=== PATIENT | female | born 1990 ===

== ENCOUNTER 2023-05-06 01:21 | Emergency (ER) | payer SELFPAY ==
[2023-05-06] VITALS (39 sets, daily range): BP systolic 116–145; BP diastolic 60–96; PULSE 81–110; RESP 14–18; TEMP 36.4; O2SAT 88–100; BMI 37.8
--- NOTE | 2023-05-06 01:29 | ED_ITS ---
HPI - General Adult <Josué Warren DO - Last Filed: 05/07/23 17:49> General Chief complaint: Altered Mental Status Stated complaint: passed out Time Seen by Provider: 05/06/23 01:23 Source: patient and EMS Mode of arrival: EMS History of Present Illness HPI narrative: Patient is a 33-year-old female who has quite a bit of reluctance to describe any HPI. [place] was [place] passed out near 1 of the smoking hot. No Narcan was given. Patient was alert when EMS arrived but would not provide a name or date. She denied taking any drugs or alcohol. She was having right-sided neck pain but she states this has been going on for a while. Vision was reluctant to answer many other HPI questions. Related Data Allergies Allergy/AdvReac Type Severity Reaction Status Date / Time No Known Drug Allergies Allergy Verified 05/06/23 09:34 Review of Systems <Josué Warren DO - Last Filed: 05/07/23 17:49> Review of Systems Narrative: Limited secondary to patient's willingness to answer questions. The only positive results that we had was right-sided neck pain that is not new. Patient History <Josué Warren DO - Last Filed: 05/07/23 17:49> Social History Smoking Status: Former smoker Smoking Status: Former smoker Substance Use Type: does not use Exam <Josué Warren DO - Last Filed: 05/07/23 17:49> Initial Vital Signs Initial Vital Signs: Vital Signs Temperature 97.6 F 05/06/23 01:17 Pulse Rate 102 H 05/06/23 01:17 Respiratory Rate 18 05/06/23 01:17 Blood Pressure 123/67 05/06/23 01:17 Pulse Oximetry 96 05/06/23 01:17 Oxygen Delivery Method Room Air 05/06/23 01:17 Const General: No well groomed (Disheveled) HENMT Head: normal to inspection and normocephalic Resp Effort & Inspection: normal respiratory effort Auscultation: clear to auscultation bilaterally Cardio Rate: regular rate Rhythm: regular rhythm Neuro Other: Patient was alert and oriented, moves all 4 extremities Extrem Other: No gross deformities <Gilma Osman MD - Last Filed: 05/06/23 10:48> Initial Vital Signs Initial Vital Signs: Vital Signs Temperature 97.6 F 05/06/23 01:17 Pulse Rate 102 H 05/06/23 01:17 Respiratory Rate 18 05/06/23 01:17 Blood Pressure 123/67 05/06/23 01:17 Pulse Oximetry 96 05/06/23 01:17 Oxygen Delivery Method Room Air 05/06/23 01:17 Scores <Josué Warren DO - Last Filed: 05/07/23 17:49> GCS [place] coma scale eye opening: Spontaneous [place] coma scale verbal response: Orientated [place] coma scale motor response: Obey commands [place] coma scale total score: 15 <Gilma Osman MD - Last Filed: 05/06/23 10:48> GCS [place] coma scale total score: 15 Course <Josué Warren DO - Last Filed: 05/07/23 17:49> Orders Ordered: Discontinued Medications Acetaminophen (Acetaminophen 325 Mg Tablet) 975 mg PO NOW ONE Stop: 05/06/23 07:48 Last Admin: 05/06/23 08:35 Dose: 975 mg Documented By: DAVIDE Naloxone HCl (Naloxone 0.4 Mg/Ml Vial) 0.4 mg IV NOW ONE Stop: 05/06/23 08:40 Last Admin: 05/06/23 09:34 Dose: 0.4 mg Documented By: DAVIDE Vital Signs Vital signs: Vital Signs - 8 hr 05/06/23 03:00 05/06/23 03:00 05/06/23 03:30 Pulse Rate 98 H 100 H Respiratory Rate 15 16 Blood Pressure 133/77 Pulse Oximetry 95 98 Oxygen Delivery Method Room Air Room Air Oxygen Flow Rate 05/06/23 03:30 05/06/23 04:00 05/06/23 04:00 Pulse Rate 100 H Respiratory Rate 15 Blood Pressure 145/96 H 131/71 Pulse Oximetry 95 Oxygen Delivery Method Room Air Oxygen Flow Rate 05/06/23 04:30 05/06/23 04:30 05/06/23 05:00 Pulse Rate 97 H 99 H Respiratory Rate 16 Blood Pressure 131/74 Pulse Oximetry 96 94 Oxygen Delivery Method Room Air Room Air Oxygen Flow Rate 05/06/23 05:00 05/06/23 05:30 05/06/23 05:30 Pulse Rate 104 H Respiratory Rate Blood Pressure 131/70 120/60 Pulse Oximetry 93 Oxygen Delivery Method Room Air Oxygen Flow Rate 05/06/23 05:40 05/06/23 05:41 05/06/23 06:00 Pulse Rate Respiratory Rate Blood Pressure 125/68 Pulse Oximetry 88 L 93 Oxygen Delivery Method Room Air Nasal Cannula Oxygen Flow Rate 2 05/06/23 06:00 05/06/23 06:30 05/06/23 06:30 Pulse Rate 103 H 99 H Respiratory Rate 15 16 Blood Pressure 126/68 Pulse Oximetry 94 95 Oxygen Delivery Method Nasal Cannula Nasal Cannula Oxygen Flow Rate 2 2 05/06/23 07:00 05/06/23 07:00 05/06/23 07:30 Pulse Rate 99 H Respiratory Rate Blood Pressure 137/89 137/77 Pulse Oximetry 98 Oxygen Delivery Method Oxygen Flow Rate 05/06/23 07:30 05/06/23 07:40 05/06/23 07:50 Pulse Rate 98 H 101 H 96 H Respiratory Rate Blood Pressure Pulse Oximetry 100 97 95 Oxygen Delivery Method Nasal Cannula Room Air Room Air Oxygen Flow Rate 2 05/06/23 08:00 05/06/23 08:10 05/06/23 08:24 Pulse Rate 93 H 89 94 H Respiratory Rate 16 Blood Pressure Pulse Oximetry 95 95 96 Oxygen Delivery Method Room Air Room Air Oxygen Flow Rate 05/06/23 08:25 05/06/23 08:25 05/06/23 08:30 Pulse Rate 93 H Respiratory Rate Blood Pressure 116/69 127/76 Pulse Oximetry 94 Oxygen Delivery Method Room Air Oxygen Flow Rate 05/06/23 08:30 05/06/23 08:40 05/06/23 08:51 Pulse Rate 96 H 89 81 Respiratory Rate Blood Pressure Pulse Oximetry 95 95 96 Oxygen Delivery Method Room Air Oxygen Flow Rate 05/06/23 08:52 05/06/23 08:52 05/06/23 09:00 Pulse Rate 89 84 Respiratory Rate Blood Pressure 126/71 Pulse Oximetry 95 95 Oxygen Delivery Method Oxygen Flow Rate 05/06/23 09:10 05/06/23 09:20 05/06/23 09:30 Pulse Rate 84 83 84 Respiratory Rate Blood Pressure Pulse Oximetry 96 97 96 Oxygen Delivery Method Room Air Oxygen Flow Rate 05/06/23 09:37 05/06/23 09:37 05/06/23 09:40 Pulse Rate 110 H 108 H Respiratory Rate Blood Pressure 124/81 Pulse Oximetry 100 99 Oxygen Delivery Method Room Air Room Air Oxygen Flow Rate 05/06/23 09:50 05/06/23 10:00 05/06/23 10:01 Pulse Rate 106 H 88 Respiratory Rate Blood Pressure 135/95 H Pulse Oximetry 99 94 Oxygen Delivery Method Oxygen Flow Rate 05/06/23 10:01 05/06/23 10:10 05/06/23 10:20 Pulse Rate 88 85 103 H Respiratory Rate Blood Pressure Pulse Oximetry 95 94 93 Oxygen Delivery Method Room Air Room Air Oxygen Flow Rate 05/06/23 10:30 05/06/23 10:30 Pulse Rate 106 H Respiratory Rate Blood Pressure 127/79 Pulse Oximetry 95 Oxygen Delivery Method Room Air Oxygen Flow Rate <Gilma Osman MD - Last Filed: 05/06/23 10:48> Orders Ordered: Discontinued Medications Acetaminophen (Acetaminophen 325 Mg Tablet) 975 mg PO NOW ONE Stop: 05/06/23 07:48 Last Admin: 05/06/23 08:35 Dose: 975 mg Documented By: SPF Naloxone HCl (Naloxone 0.4 Mg/Ml Vial) 0.4 mg IV NOW ONE Stop: 05/06/23 08:40 Last Admin: 05/06/23 09:34 Dose: 0.4 mg Documented By: SPF Vital Signs Vital signs: Vital Signs - 8 hr 05/06/23 03:00 05/06/23 03:00 05/06/23 03:30 Pulse Rate 98 H 100 H Respiratory Rate 15 16 Blood Pressure 133/77 Pulse Oximetry 95 98 Oxygen Delivery Method Room Air Room Air Oxygen Flow Rate 05/06/23 03:30 05/06/23 04:00 05/06/23 04:00 Pulse Rate 100 H Respiratory Rate 15 Blood Pressure 145/96 H 131/71 Pulse Oximetry 95 Oxygen Delivery Method Room Air Oxygen Flow Rate 05/06/23 04:30 05/06/23 04:30 05/06/23 05:00 Pulse Rate 97 H 99 H Respiratory Rate 16 Blood Pressure 131/74 Pulse Oximetry 96 94 Oxygen Delivery Method Room Air Room Air Oxygen Flow Rate 05/06/23 05:00 05/06/23 05:30 05/06/23 05:30 Pulse Rate 104 H Respiratory Rate Blood Pressure 131/70 120/60 Pulse Oximetry 93 Oxygen Delivery Method Room Air Oxygen Flow Rate 05/06/23 05:40 05/06/23 05:41 05/06/23 06:00 Pulse Rate Respiratory Rate Blood Pressure 125/68 Pulse Oximetry 88 L 93 Oxygen Delivery Method Room Air Nasal Cannula Oxygen Flow Rate 2 05/06/23 06:00 05/06/23 06:30 05/06/23 06:30 Pulse Rate 103 H 99 H Respiratory Rate 15 16 Blood Pressure 126/68 Pulse Oximetry 94 95 Oxygen Delivery Method Nasal Cannula Nasal Cannula Oxygen Flow Rate 2 2 05/06/23 07:00 05/06/23 07:00 05/06/23 07:30 Pulse Rate 99 H Respiratory Rate Blood Pressure 137/89 137/77 Pulse Oximetry 98 Oxygen Delivery Method Oxygen Flow Rate 05/06/23 07:30 05/06/23 07:40 05/06/23 07:50 Pulse Rate 98 H 101 H 96 H Respiratory Rate Blood Pressure Pulse Oximetry 100 97 95 Oxygen Delivery Method Nasal Cannula Room Air Room Air Oxygen Flow Rate 2 05/06/23 08:00 05/06/23 08:10 05/06/23 08:24 Pulse Rate 93 H 89 94 H Respiratory Rate 16 Blood Pressure Pulse Oximetry 95 95 96 Oxygen Delivery Method Room Air Room Air Oxygen Flow Rate 05/06/23 08:25 05/06/23 08:25 05/06/23 08:30 Pulse Rate 93 H Respiratory Rate Blood Pressure 116/69 127/76 Pulse Oximetry 94 Oxygen Delivery Method Room Air Oxygen Flow Rate 05/06/23 08:30 05/06/23 08:40 05/06/23 08:51 Pulse Rate 96 H 89 81 Respiratory Rate Blood Pressure Pulse Oximetry 95 95 96 Oxygen Delivery Method Room Air Oxygen Flow Rate 05/06/23 08:52 05/06/23 08:52 05/06/23 09:00 Pulse Rate 89 84 Respiratory Rate Blood Pressure 126/71 Pulse Oximetry 95 95 Oxygen Delivery Method Oxygen Flow Rate 05/06/23 09:10 05/06/23 09:20 05/06/23 09:30 Pulse Rate 84 83 84 Respiratory Rate Blood Pressure Pulse Oximetry 96 97 96 Oxygen Delivery Method Room Air Oxygen Flow Rate 05/06/23 09:37 05/06/23 09:37 05/06/23 09:40 Pulse Rate 110 H 108 H Respiratory Rate Blood Pressure 124/81 Pulse Oximetry 100 99 Oxygen Delivery Method Room Air Room Air Oxygen Flow Rate 05/06/23 09:50 05/06/23 10:00 05/06/23 10:01 Pulse Rate 106 H 88 Respiratory Rate Blood Pressure 135/95 H Pulse Oximetry 99 94 Oxygen Delivery Method Oxygen Flow Rate 05/06/23 10:01 05/06/23 10:10 05/06/23 10:20 Pulse Rate 88 85 103 H Respiratory Rate Blood Pressure Pulse Oximetry 95 94 93 Oxygen Delivery Method Room Air Room Air Oxygen Flow Rate 05/06/23 10:30 05/06/23 10:30 Pulse Rate 106 H Respiratory Rate Blood Pressure 127/79 Pulse Oximetry 95 Oxygen Delivery Method Room Air Oxygen Flow Rate Medical Decision Making <Josué Warren, DO - Last Filed: 05/07/23 17:49> Lab Data 05/06/23 09:20 05/06/23 09:20 Labs: Lab Results 05/06/23 Range/Units 09:20 WBC 6.3 (4.5-11.0) X10^3/uL RBC 4.49 (4.0-5.2) X10^6/uL Hgb 10.6 L (12.0-16.0) g/dL Hct 33.2 L (36-46) % MCV 74.0 L (80-100) fL MCH 23.7 L (26-34) PG MCHC 32.0 (30-36) % RDW 23.4 H (11.6-14.8) % Plt Count 570 H (150-400) X10^3/uL Neut % (Auto) 42.8 L (50-75) % Lymph % (Auto) 41.9 H (25-40) % [place] % (Auto) 10.9 (3-14) % Eos % (Auto) 3.9 (2-4) % Baso % (Auto) 0.5 (0-2) % Neut # (Auto) 2700 (5965-8250) /uL Lymph # (Auto) 2700 (3897-4147) /uL [place] # (Auto) 700 (0-900) /uL Eos # (Auto) 200 (0-450) /uL Baso # (Auto) 0 (0-100) /uL Platelet Estimate Adequate on smear RBC Morphology See below Anisocytosis 3+ H Microcytosis 1+ H Target Cells 2+ H Sodium 135 L (137-145) mmol/L Potassium 4.1 (3.4-5.1) mmol/L Chloride 106 (98-107) mmol/L Carbon Dioxide 31 (22-32) mmol/L BUN 7 (7-17) mg/dL Creatinine 0.41 L (0.52-1.04) mg/dL Estimated GFR > 60 (>60) mL/min BUN/Creatinine Ratio 17.1 (6-22) Glucose 84 (70-100) mg/dL Calcium 9.0 (8.4-10.2) mg/dL Total Bilirubin 0.7 (0.2-1.3) mg/dL AST 33 (14-36) IU/L ALT 26 (<35) IU/L Alkaline Phosphatase 100 (38-126) U/L Total Protein 6.5 (6.3-8.2) g/dL Albumin 3.2 L (3.5-5.0) g/dL Globulin 3.3 (1.7-4.1) g/dL Albumin/Globulin Ratio 1.0 (1.0-2.8) MDM Narrative Medical decision making narrative: Patient was alert and oriented. No overt signs of trauma. She was reluctant to describe the events that led to EMS being called. She denied any drugs or alcohol although her clinical presentation today would be consistent with a form of intoxication. No respiratory distress. We will hold on Narcan. Patient stated very bluntly that she did not want an IV, did not want labs, did not want CT scans and stated multiple times ?do not touch me?. Plan will be is to observe here in the emergency department until the patient becomes clinically sober. If the clinical scenario deteriorates then we can pursue labs and CT scan at that point. <Gilma Osman MD - Last Filed: 05/06/23 10:48> Lab Data Labs: Lab Results 05/06/23 Range/Units 09:20 WBC 6.3 (4.5-11.0) X10^3/uL RBC 4.49 (4.0-5.2) X10^6/uL Hgb 10.6 L (12.0-16.0) g/dL Hct 33.2 L (36-46) % MCV 74.0 L (80-100) fL MCH 23.7 L (26-34) PG MCHC 32.0 (30-36) % RDW 23.4 H (11.6-14.8) % Plt Count 570 H (150-400) X10^3/uL Neut % (Auto) 42.8 L (50-75) % Lymph % (Auto) 41.9 H (25-40) % [place] % (Auto) 10.9 (3-14) % Eos % (Auto) 3.9 (2-4) % Baso % (Auto) 0.5 (0-2) % Neut # (Auto) 2700 (2356-5769) /uL Lymph # (Auto) 2700 (8657-0086) /uL [place] # (Auto) 700 (0-900) /uL Eos # (Auto) 200 (0-450) /uL Baso # (Auto) 0 (0-100) /uL Platelet Estimate Adequate on smear RBC Morphology See below Anisocytosis 3+ H Microcytosis 1+ H Target Cells 2+ H Sodium 135 L (137-145) mmol/L Potassium 4.1 (3.4-5.1) mmol/L Chloride 106 (98-107) mmol/L Carbon Dioxide 31 (22-32) mmol/L BUN 7 (7-17) mg/dL Creatinine 0.41 L (0.52-1.04) mg/dL Estimated GFR > 60 (>60) mL/min BUN/Creatinine Ratio 17.1 (6-22) Glucose 84 (70-100) mg/dL Calcium 9.0 (8.4-10.2) mg/dL Total Bilirubin 0.7 (0.2-1.3) mg/dL AST 33 (14-36) IU/L ALT 26 (<35) IU/L Alkaline Phosphatase 100 (38-126) U/L Total Protein 6.5 (6.3-8.2) g/dL Albumin 3.2 L (3.5-5.0) g/dL Globulin 3.3 (1.7-4.1) g/dL Albumin/Globulin Ratio 1.0 (1.0-2.8) MDM Narrative Medical decision making narrative: Patient was alert and oriented. No overt signs of trauma. She was reluctant to describe the events that led to EMS being called. She denied any drugs or alcohol although her clinical presentation today would be consistent with a form of intoxication. No respiratory distress. We will hold on Narcan. Patient stated very bluntly that she did not want an IV, did not want labs, did not want CT scans and stated multiple times ?do not touch me?. Plan will be is to observe here in the emergency department until the patient becomes clinically sober. If the clinical scenario deteriorates then we can pursue labs and CT scan at that point. Care of patient is signed out to me by Dr. Warren at 0700. Patient was allowed to sleep in ED bed, no change in patient's condition. After being woken up again denied complaints, however when informed she was going to be discharged she stated she had a headache. P.o. Tylenol administered. Given referrals to local shelters. Patient became more somnolent, unable to be aroused and falling asleep mid sentence. Out of precaution lab work and CT imaging were ordered, which were normal. Patient's mental status improved with Narcan. Patient was observed and no additional Narcan needed. Patient discharged with same instructions and with referrals to local shelters Discharge Plan Departure Patient Disposition: Home Clinical Impression: Neck pain, Refusal of treatment Instructions: DI for Chronic Neck Pain Stand Alone Forms: Patient Portal/API
--- NOTE | 2023-05-06 01:40 | PC.NURSE ---
pt refused for us to take off shirt and refused any treatment. Would allow me to get a blood pressure through her sweatshirt.
--- NOTE | 2023-05-06 02:14 | PC.NURSE ---
This nurse spoke with Dr. Warren about what the plan of care is for the patient. Dr. Warren reports the patient refused to have anything done, Andreina MEJÍA also reports patient refused any care. Will continue to monitor. Patient currently resting in gurney, eyes shut, breathing even and unlabored.
--- NOTE | 2023-05-06 07:50 | PC.NURSE ---
Pt responds to physical stimuli from sleeping, pt was asked if she has a ride to take her home to rest. Pt responds I dont have anywhere to go rest. I asked where patient lives, pt states [place]. I asked pt if she could call someone for a ride, pt states she will take the bus. Staff arranging taxi ride [place] discharge.
--- NOTE | 2023-05-06 08:06 | PC.NURSE ---
Pt was sat up semi fowlers position, pt sleeping and difficult to remain awake. Pt responds to physical stimulation, awakens, difficulty keeping eyes open. C/O headache but is unable to take her prescribed medication ( see MAR) by mouth as she falls asleep and drops her hand. Vitals stable (see vitals).
[2023-05-06] MEDS: ACETAMINOPHEN 325 MG TABLET 975 MG PO (08:35)
--- NOTE | 2023-05-06 08:39 | DI.CT.S_ITS ---
PROCEDURE: CT HEAD/BRAIN WO CON INDICATIONS: altered mental status TECHNIQUE: Noncontrast 4.5 mm thick angled axial sections acquired from the foramen magnum to the vertex, with coronal and sagittal reformats. For radiation dose reduction, the following was used: automated exposure control, adjustment of mA and/or kV according to patient size. COMPARISON: None. FINDINGS: Image quality: Diagnostic. CSF spaces: Basal cisterns are patent. No extra-axial fluid collections. Ventricles are normal in size and shape. Brain: No midline shift. No intracranial masses or hemorrhage. Boggs-white matter interface is normal. Skull and face: Calvarium and visualized facial bones are intact, without suspicious lesions. Sinuses: Suggestion of possible previous partial ethmoidectomies. There is right greater than left ethmoid mucosal thickening consistent with chronic sinus disease. IMPRESSION: 1. No acute intracranial process. 2. Question previous partial ethmoidectomies. 3. Chronic ethmoid sinusitis. Dictated by: Cuco Banerjee M.D. on 05/06/2023 at 9:01 Approved by: Cuco Banerjee M.D. on 05/06/2023 at 9:03
[2023-05-06 09:31] LABS: Add Manual Diff / Slide Review NO; Basophils Absolute Auto 0 /uL (0-100); Basophils Percent Auto 0.5 % (0-2); Eosinophils Absolute Auto 200 /uL (0-450); Eosinophils Percent Auto 3.9 % (2-4); Hematocrit 33.2 % (36-46); Hemoglobin 10.6 g/dL (12.0-16.0); Lymphocytes Absolute Auto 2700 /uL (1100-4500); Lymphocytes Percent Auto 41.9 % (25-40); Mean Corpuscular Hemoglobin 23.7 PG (26-34); Monocytes Absolute Auto 700 /uL (0-900); Monocytes Percent Auto 10.9 % (3-14); Neutrophils Absolute Auto 2700 /uL (1500-7000); Neutrophils Percent Auto 42.8 % (50-75); Platelet Count 570 X10^3/uL (150-400); Red Blood Cell Count 4.49 X10^6/uL (4.0-5.2); Red Cell Distribution Width 23.4 % (11.6-14.8); White Blood Cell Count 6.3 X10^3/uL (4.5-11.0)
[2023-05-06] MEDS: NALOXONE 0.4 MG/ML VIAL IV (09:34)
--- NOTE | 2023-05-06 09:41 | PC.NURSE ---
2 minutes after medication administration (see MAR) pt started moaning, shifting in bed, yelling out I'm cold! I need a blanket. Pt provided with warm blanket and repositioned onto her right side.
[2023-05-06 09:48] LABS: Alanine Aminotransferase 26 IU/L (<35); Albumin 3.2 g/dL (3.5-5.0); Alkaline Phosphatase 100 U/L (38-126); Aspartate Aminotransferase 33 IU/L (14-36); BUN Creatinine Ratio 17.1 (6-22); Bilirubin Total 0.7 mg/dL (0.2-1.3); Blood Urea Nitrogen 7 mg/dL (7-17); Carbon Dioxide 31 mmol/L (22-32); Chloride 106 mmol/L (98-107); Estimated Glomerular Filt Rate > 60 mL/min (>60); Globulin 3.3 g/dL (1.7-4.1); Glucose 84 mg/dL (70-100); HEMOLYSIS < 15 (0-50); Potassium 4.1 mmol/L (3.4-5.1); Sodium 135 mmol/L (137-145); Total Protein 6.5 g/dL (6.3-8.2)
[2023-05-06 10:01] LABS: Anisocytosis 3+; Microcytosis 1+; Platelet Estimate Adequate on smear; Target Cells 2+
== END 2023-05-06 10:50 | disposition home or self-care (01) ==
PROVIDERS: Emergency Medicine; Emergency Provider Emergency Medicine
DX: M54.2 Cervicalgia (principal); Z53.20 Procedure and treatment not carried out because of patient's decision for unspecified reasons; R41.82 Altered mental status, unspecified
CPT/HCPCS: 36415; 70450; 80053; 85025; 96374; 99284; J2310